=== PATIENT | female | born 1985 | race Caucasian/White ===

== ENCOUNTER 2018-12-18 14:45 | Outpatient (CLI) | payer MEDICARE, MEDICAID ==
[~2018-12-18] VITALS: Ht 172.7 cm; Wt 85.3 kg
[~2018-12-18 14:45] MED LIST: ARIP5TAB4 PO; CLON-514 PO; DOXE25CA3 PO; FURO-150 PO; IBUP-1986 PO; LEVO25TA2 PO; METF750T2 PO; POTA-82 PO; ZIPR20CA2 PO
[2018-12-18 16:43] LABS: BASOPHILS % (AUTO) 0.4 % (0-1); EOSINOPHILS # (AUTO) 0.1 X10'3 (0-0.9); EOSINOPHILS % (AUTO) 1.4 % (0-6); LYMPHOCYTES # (AUTO) 2.9 X10'3 (1.1-4.8); LYMPHOCYTES % (AUTO) 36.5 % (21-51); MEAN CORPUSCULAR HEMOGLOBIN 31.1 PG (27.0-31.0); MEAN CORPUSCULAR HGB CONC 34.3 g/dL (33.0-36.5); MEAN CORPUSCULAR VOLUME 90.9 FL (78-98); MEAN PLATELET VOLUME 8.8 FL (7.4-10.4); MONOCYTES # (AUTO) 0.7 X10'3 (0-0.9); MONOCYTES % (AUTO) 8.4 % (2-12); NEUTROPHILS # (AUTO) 4.3 X10'3 (1.8-7.7); NEUTROPHILS % (AUTO) 53.3 % (42-75); PRE OP HEMATOCRIT 42.8 % (35.0-45.0); PRE OP HEMOGLOBIN 14.6 g/dL (12.0-16.0); PRE OP PLATELET COUNT 203 X10'3 (140-440); RED CELL DISTRIBUTION WIDTH 12.4 % (11.5-14.5)
[2018-12-18 17:02] LABS: HEMOGLOBIN A1C 5.4 % (4.5-6.2)
[2018-12-18 17:04] LABS: PRE OP PROTIME 10.3 SECONDS (9.0-12.0)
[2018-12-18 17:05] LABS: ALBUMIN/GLOBULIN RATIO 1.1 (1.1-1.5); ALKALINE PHOSPHATASE 42 IU/L (46-116); BLOOD UREA NITROGEN 15 MG/DL (7-18); BUN/CREATININE RATIO 18.1 (6.6-38.0); CALCIUM 8.5 MG/DL (8.5-10.1); CHLORIDE 104 MMOL/L (99-107); CREATININE 0.83 MG/DL (0.40-0.90); PRE OP ALT 23 U/L (30-65); PRE OP ANION GAP 11 (8-16); PRE OP AST 13 U/L (10-37); PRE OP BILIRUB, TOTAL 0.4 MG/DL (0.0-1.0); PRE OP GLUCOSE 89 MG/DL (70-104); PRE OP POTASSIUM 3.5 MMOL/L (3.4-5.1); PRE OP SODIUM 142 MMOL/L (135-145); TOTAL CARBON DIOXIDE 27.3 MMOL/L (24-32); TOTAL PROTEIN 7.6 G/DL (6.4-8.2); eGFR 79 ML/MIN
[2018-12-18 17:29] LABS: HCG SERUM QL NEGATIVE
[2018-12-18] MEDS ORDERED: ARIP15TA3 PO (17:36)
[2018-12-18] MEDS ORDERED: ERGO500014 PO (17:41)
[2018-12-18] MEDS ORDERED: VERA120T PO (17:41)
[2018-12-18] MEDS ORDERED: OMEP40CA37 PO (17:41)
[2018-12-18] MEDS ORDERED: TIZA4TAB11 PO (17:41)
[2018-12-18] MEDS ORDERED: ASPI81TA52 PO (17:41)
[2018-12-18] MEDS ORDERED: METH20TA PO (17:41)
[2018-12-20] MEDS ORDERED: ALBU18HF2 INH (11:49)
[2018-12-23] MEDS ORDERED: ringers solution, lacted 1,000 ML IV SCH (05:00)
[2018-12-23] MEDS ORDERED: ceFOXitin 2 GM ADDvantage bag 100 ML IV ONE (05:30)
[2018-12-23] MEDS ORDERED: famotidine 20mg tablet PO ONE (05:30)
[2018-12-23] MEDS ORDERED: cefotetan 2gm/isosm dext IVPB 50 ML IV ONE (05:30)
== END 2018-12-18 23:59 | disposition home or self-care (01) ==
LOC: PRE-OP 14:45 → EDSTATUS 12-23 08:00
PROVIDERS: ATTEND Specialist
DX: Z01.818 Encounter for other preprocedural examination (principal); I10 Essential (primary) hypertension; J45.909 Unspecified asthma, uncomplicated; E11.9 Type 2 diabetes mellitus without complications; Z91.040 Latex allergy status; Z88.5 Allergy status to narcotic agent; Z88.2 Allergy status to sulfonamides; Z88.6 Allergy status to analgesic agent; Z90.710 Acquired absence of both cervix and uterus; Z87.891 Personal history of nicotine dependence; Z79.82 Long term (current) use of aspirin
CPT/HCPCS: 36415; 80053; 83036; 84703; 85025; 85610; 85730; 86885; 86900; 86901; J0694; J7120

== ENCOUNTER 2019-01-20 05:18 | Day surgery (SDC) | payer MEDICARE, MEDICAID ==
[2019-01-20] VITALS (18 sets, daily range): BP systolic 108–132; BP diastolic 55–79
[~2019-01-20] VITALS: Ht 172.7 cm; Wt 84.3 kg
[~2019-01-20 05:18] MED LIST changes: +ALBU18HF2 INH; +ARIP15TA3 PO; -ARIP5TAB4 PO; +ASPI81TA52 PO; -DOXE25CA3 PO; +ERGO500014 PO; -FURO-150 PO; -IBUP-1986 PO; -LEVO25TA2 PO; +METH20TA PO; +OMEP40CA37 PO; -POTA-82 PO; +TIZA4TAB11 PO; +VERA120T PO; +ringers solution, lacted 1,000 ML IV SCH
[2019-01-20] MEDS ORDERED: famotidine 20mg tablet PO ONE (05:30)
[2019-01-20] MEDS ORDERED: cefotetan 2gm/isosm dext IVPB 50 ML IV ONE (06:45)
[2019-01-20] MEDS ORDERED: vasoPRESSIN 20 units/ml inj. ONE (06:48)
[2019-01-20] MEDS ORDERED: LIDOcaine 1% 30ml preserv. free vial ONE (06:48)
[2019-01-20] MEDS ORDERED: BUPIVAcaine/PF 2.5mg/ml (0.25%) 10ml vial ONE (06:48)
[2019-01-20] MEDS ORDERED: morphine 10mg/ml inj. ONE (06:48)
[2019-01-20] MEDS ORDERED: clindamycin phosphate 40gm vag cream ONE (06:48)
[2019-01-20] MEDS ORDERED: ceFAZolin 1000mg inj ONE (06:48)
[2019-01-20 06:51] LABS: BASOPHILS % (AUTO) 0.4 % (0-1); EOSINOPHILS % (AUTO) 0.6 % (0-6); HEMATOCRIT 42.6 % (35.0-45.0); HEMOGLOBIN 14.4 g/dl (12.0-16.0); LYMPHOCYTES # (AUTO) 2.1 X10'3 (1.1-4.8); LYMPHOCYTES % (AUTO) 29.1 % (21-51); MEAN CORPUSCULAR HEMOGLOBIN 30.6 PG (27.0-31.0); MEAN CORPUSCULAR HGB CONC 33.9 g/dL (33.0-36.5); MEAN CORPUSCULAR VOLUME 90.3 FL (78-98); MONOCYTES # (AUTO) 0.5 X10'3 (0-0.9); MONOCYTES % (AUTO) 6.6 % (2-12); NEUTROPHILS # (AUTO) 4.6 X10'3 (1.8-7.7); NEUTROPHILS % (AUTO) 63.3 % (42-75); PLATELET COUNT 191 X10'3 (140-440); RED BLOOD COUNT 4.72 X10'6 (4.20-5.60); RED CELL DISTRIBUTION WIDTH 12.6 % (11.5-14.5); WHITE BLOOD COUNT 7.2 X10'3 (4.5-11.0)
[2019-01-20 06:58] LABS: ALANINE AMINOTRANSFERASE 24 U/L (12-78); ALBUMIN 3.8 G/DL (3.4-5.0); ALBUMIN/GLOBULIN RATIO 1.1 (1.1-1.5); ALKALINE PHOSPHATASE 41 IU/L (46-116); ANION GAP 9 (8-16); ASPARTATE AMINO TRANSFERASE 13 U/L (10-37); BILIRUBIN,TOTAL 0.4 MG/DL (0.1-1.0); BLOOD UREA NITROGEN 13 MG/DL (7-18); BUN/CREATININE RATIO 15.3 (6.6-38.0); CALCIUM 8.8 MG/DL (8.5-10.1); CHLORIDE 108 MMOL/L (99-107); CREATININE 0.85 MG/DL (0.40-0.90); GLUCOSE 107 MG/DL (70-104); PARTIAL THROMBOPLASTIN TIME 27 SECONDS (22-32); POTASSIUM 3.5 MMOL/L (3.5-5.1); SODIUM 140 MMOL/L (135-145); TOTAL CARBON DIOXIDE 22.8 MMOL/L (24-32); TOTAL PROTEIN 7.4 G/DL (6.4-8.2); eGFR 77 ML/MIN
[2019-01-20 07:05] LABS: BETA HCG,QUANTITATIVE 2 mIU/ml
[2019-01-20] MEDS ORDERED: midazolam 2 mg/2 ml injection ONE (08:20)
[2019-01-20] MEDS ORDERED: fentaNYL /PF 50mcg/ml 5ml ampule ONE (08:21)
[2019-01-20] MEDS ORDERED: propofol inj 20 ML IV ONE (08:21)
[2019-01-20] MEDS ORDERED: rocuronium 10mg/ml inj IV ONE ×2 (08:21→08:36)
[2019-01-20 08:25] LABS: HCG SERUM QL NEGATIVE
[2019-01-20] MEDS ORDERED: fluoroscein sod 10% (100mg/ml) 5ml vial ONE (08:36)
[2019-01-20] MEDS ORDERED: sevoflurane 250ml liquid IH ONE (08:36)
[2019-01-20] MEDS ORDERED: dexamethasone sod phosphate 4mg/ml inj. ONE (08:48)
[2019-01-20] MEDS ORDERED: meperidine/PF 25mg/ml syringe IV PRN ×3 (09:50)
[2019-01-20] MEDS ORDERED: ringers solution, lacted 1,000 ML IV SCH (09:50)
[2019-01-20] MEDS ORDERED: morphine 4 MG/ML inj SYRINge IV PRN ×2 (09:50)
[2019-01-20] MEDS ORDERED: ondansetron/PF 4mg/2ml inj IV PRN ×2 (09:50→11:20)
[2019-01-20] MEDS ORDERED: proCHLORperazine 10 MG/2 ml inj IV PRN (09:50)
[2019-01-20] MEDS ORDERED: glycopyrrolate 0.2mg/ml inj ONE (11:04)
[2019-01-20] MEDS ORDERED: neostigmine methylsulfate 1 MG/ML 10ml vial ONE (11:04)
[2019-01-20] MEDS ORDERED: ondansetron/PF 4mg/2ml inj ONE (11:04)
[2019-01-20] MEDS ORDERED: normal saline 500ml IV soln 500 ML IV PRN (11:20)
[2019-01-20] MEDS ORDERED: diphenhydrAMINE 50 mg/ml inj IV PRN (11:20)
[2019-01-20] MEDS ORDERED: temazepam 15mg capsule PO PRN (11:20)
[2019-01-20] MEDS ORDERED: HYDROcodone/acetaminophen 5mg/325mg tablet PO PRN ×2 (11:20)
[2019-01-20] MEDS ORDERED: CADD PCA waste documentation MC PRN (11:20)
[2019-01-20] MEDS ORDERED: magnesium hydroxide 30ml (MOM) UD suspension PO PRN (11:20)
[2019-01-20] MEDS ORDERED: naloxone 0.4 mg/ml inj IV PRN (11:20)
--- NOTE | 2019-01-20 11:30 | NUR ---
Received from OR via BED , accompanied by Anesthesiologist DR BUSH and report given by Anesthesiolgist. PATIENT WAKING UP, DENIES PAIN, V/S WNL, CSM INTACT, 20G PIV LUE , SCD ON, F/C DRAINING CLEAR YELLOW URINE. 4 LAP SITES TO ABDOMEN WITH BANDAIDS CDI AND IVETT PAD W/ SCANT DRAINAGE
[2019-01-20] MEDS: HYDROmorphone/NS 1 mg/ml CADD 50 ML IV SCH ×7 (11:39→22:44)
[2019-01-20] MEDS ORDERED: non-formulary drug (Albuterol Sulfate (Ventolin Hfa) 2 PUFFS) INH SCH (11:40)
--- NOTE | 2019-01-20 11:45 | NUR ---
Report received from [facility].
[2019-01-20] MEDS ORDERED: albuterol 2.5 MG/3 ML nebule NEB PRN (11:50)
--- NOTE | 2019-01-20 12:30 | NUR ---
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 4 LAP SITES TO ABDOMEN WITH BANDAIDS CDI AND IVETT PAD W/ SCANT DRAINAGE, PATIENT TAKEN TO 345B WITH ALL BELONGINGS AND REPORT GIVEN TO EVP STRATEGY WHO HAS TAKEN OVER PATIENT CARE.
[2019-01-20] MEDS: simethicone 80mg chew tab PO SCH ×2 (13:30→18:03)
[2019-01-20] MEDS: ketorolac trometh. 30mg/ml inj. IV PRN ×2 (13:32→19:26)
[2019-01-20] MEDS: ringers solution, lacted 1,000 ML IV SCH ×2 (14:25→17:58)
--- NOTE | 2019-01-20 18:45 | NUR ---
Patient in room [facility]. I have received report from GINGER Miller and had the opportunity to ask questions and assume patient care. Addendum: 01/20/19 at 2336 by Dee Gatica RN Amended: Links added.
--- NOTE | 2019-01-20 19:03 | NUR ---
Problems reprioritized. Patient report given, questions answered & plan of care reviewed with GINGER Rogel.
[2019-01-20] MEDS ORDERED: non-formulary drug (Omeprazole (Prilosec) 1 CAP) PO SCH (20:00)
[2019-01-20] MEDS: pantoprazole 40mg Tablet.DR PO SCH (20:23)
[2019-01-20] MEDS ORDERED: ARIPIPRAZOLE PO SCH (21:00)
[2019-01-20] MEDS ORDERED: aripiprazole 5mg tablet PO SCH (21:00)
[2019-01-21] VITALS: BP 96/49
[2019-01-21] MEDS: HYDROmorphone/NS 1 mg/ml CADD 50 ML IV SCH ×8 (01:00→15:00)
[2019-01-21] MEDS: ketorolac trometh. 30mg/ml inj. IV PRN ×3 (02:33→14:03)
[2019-01-21] MEDS: ringers solution, lacted 1,000 ML IV SCH ×2 (02:34→10:43)
[2019-01-21 04:55] LABS: BASOPHILS % (AUTO) 0.2 % (0-1); EOSINOPHILS % (AUTO) 0 % (0-6); HEMATOCRIT 33.4 % (35.0-45.0); HEMOGLOBIN 11.6 g/dl (12.0-16.0); LYMPHOCYTES # (AUTO) 1.5 X10'3 (1.1-4.8); LYMPHOCYTES % (AUTO) 14.8 % (21-51); MEAN CORPUSCULAR HGB CONC 34.6 g/dL (33.0-36.5); MEAN CORPUSCULAR VOLUME 89.6 FL (78-98); MEAN PLATELET VOLUME 8.8 FL (7.4-10.4); MONOCYTES # (AUTO) 0.7 X10'3 (0-0.9); MONOCYTES % (AUTO) 7.2 % (2-12); NEUTROPHILS # (AUTO) 7.9 X10'3 (1.8-7.7); NEUTROPHILS % (AUTO) 77.8 % (42-75); PLATELET COUNT 182 X10'3 (140-440); RED BLOOD COUNT 3.73 X10'6 (4.20-5.60); RED CELL DISTRIBUTION WIDTH 12.3 % (11.5-14.5); WHITE BLOOD COUNT 10.2 X10'3 (4.5-11.0)
--- NOTE | 2019-01-21 05:52 | NUR ---
vag packing dc'd ml well, genia care and pad given. Addendum: 01/21/19 at 0552 by Dee Gatica RN Amended: Links added.
--- NOTE | 2019-01-21 06:29 | NUR ---
Problems reprioritized. Patient report given, questions answered & plan of care reviewed with GINGER Mckeon. Addendum: 01/21/19 at 0629 by Dee Gatica RN Amended: Links added.
--- NOTE | 2019-01-21 06:56 | NUR ---
Patient in room [facility]. I have received report from THERESA MILES and had the opportunity to ask questions and assume patient care. Patient up walking at this time.
[2019-01-21 07:22] VITALS: BP 98/54
[2019-01-21] MEDS: pantoprazole 40mg Tablet.DR PO SCH (07:54)
[2019-01-21] MEDS: simethicone 80mg chew tab PO SCH ×2 (07:55→14:03)
[2019-01-21] MEDS ORDERED: METHYLPHENIDATE HCL PO SCH (08:00)
[2019-01-21] MEDS ORDERED: methylphenidate 5mg tablet PO SCH (08:00)
[2019-01-21] MEDS ORDERED: METFORMIN HCL PO SCH (08:00)
[2019-01-21] MEDS ORDERED: metFORMIN 500mg tablet PO SCH (08:00)
[2019-01-21 08:34] VITALS: BP 100/53
[2019-01-21 11:00] VITALS: BP 113/66
--- NOTE | 2019-01-21 19:01 | NUR ---
Patient had post void residuals over 100 ml so aguirre catheter inserted per Dr. Busby order set. Patient given cap, leg bag, and night bag. Informed to follow up with physician for removal. Patient has medication already filled from pre op and patient has already called for follow up. Patient verbally understood showering instructions and transition of night to day bag as well as aguirre care.
== END 2019-01-21 17:18 | disposition home or self-care (01) ==
LOC: PAS 05:18 → SUR 3N 11:23 → PAS 01-21 17:18
PROVIDERS: ATTEND Specialist
DX: N72 Inflammatory disease of cervix uteri (principal); N81.4 Uterovaginal prolapse, unspecified; N39.46 Mixed incontinence; N81.6 Rectocele; N32.81 Overactive bladder; F31.9 Bipolar disorder, unspecified; Z79.01 Long term (current) use of anticoagulants; Z79.899 Other long term (current) drug therapy; Z88.8 Allergy status to other drugs, medicaments and biological substances; Z88.6 Allergy status to analgesic agent; Z88.1 Allergy status to other antibiotic agents; Z91.040 Latex allergy status; Z79.82 Long term (current) use of aspirin; Z72.89 Other problems related to lifestyle
CPT/HCPCS: 36415; 57265; 57283; 57288; 58552; 80053; 82948; 84702; 84703; 85025; 85610; 85730; 86885; 86900; 86901; 87070; A6255; C1771; J0690; J1100; J1170; J1885; J2250; J2270; J2405; J2704; J2710; J3010; J3490; J7120; A4315; A4355; A6250; A7000; G0378; J7030